=== PATIENT | male | born 1975 | race American Indian/Alaskan Native ===

== ENCOUNTER 2021-09-24 05:57 | Inpatient (IN) | payer BC ==
--- NOTE | 2021-09-24 07:20 | XRay Report ---
CHEST 2 VIEWS INDICATION / CLINICAL INFORMATION: sob. Chest pain. COMPARISON: None available. FINDINGS: SUPPORT DEVICES: None. HEART / MEDIASTINUM: No significant abnormality. LUNGS / PLEURA: There are nonspecific right basilar opacities with otherwise clear lungs. No signific ant pleural effusion. No pneumothorax. ADDITIONAL FINDINGS: No significant additional findings. IMPRESSION: Nonspecific right basilar opacities could represent atelectasis or pneumonia. Signer Name: Cristóbal Morillo MD Signed: 09/24/2021 7:16 AM Workstation Name: [id number]
[2021-09-24 09:02] LABS: Hematocrit 43.5 % (35.5-45.6); Hemoglobin 14.5 gm/dl (11.8-15.2); Mean Corpuscular HGB Conc 33 % (32-34); Mean Corpuscular Volume 90 fl (84-94); Platelet Count 415 K/mm3 (140-440); Red Blood Count 4.85 M/mm3 (3.65-5.03); Red Cell Distribution Width 12.8 % (13.2-15.2)
[2021-09-24 09:25] LABS: Alanine Aminotransferase 8 units/L (7-56); Albumin 3.8 g/dL (3.9-5); BUN/Creatinine Ratio 20; Blood Urea Nitrogen 14 mg/dL (9-20); Calcium 9.3 mg/dL (8.4-10.2); Chol/HDL Ratio 4.09 %; HDL Cholesterol 44 mg/dL (40-59); Hemolysis Index 2; LDL Cholesterol,Direct 121 mg/dL (50-130)
--- NOTE | 2021-09-24 10:58 | Emergency Department Report ---
ED General Adult HPI - General Chief complaint: Dyspnea/Respdistress Stated complaint: SOB PUI?: No Time Seen by Provider: 09/24/21 08:02 Source: patient Mode of arrival: Ambulatory Limitations: No Limitations - History of Present Illness Initial comments: 46 YO AA MALE COMES TO ER WITH SHARP CP AND SOB. HE REPORTS HX OF DVT IN THE PAST. DX [place] A LITTLE OVER 5 Y AGO. HE STATES THEY TOLD HIM IT WAS BECAUSE OF HIS "LIPIDS" AND HE WAS PLACED ON LIPITOR. HE ALSO STATES HE WAS ON PLAVIX (BUT NOT SURE IF THAT IS THE NAME). HE IS NO LONGER TAKING THESE. HE IS ALSO NOT TAKING AN ASA. HE IS ON NO HOME MEDS. PAIN HAS INC OVER THE LAST 2 DAYS. NO FEVER OR CHILLS NO COUGH OR BLOODY SPUTUM NO LEG PAIN OR SWELLING PT ADDS THAT IN [place] THE BLOOD CLOT WAS IN HIS LEG AND WENT TO HIS HEAD AND HE WAS PARALYZED FOR SOME TIME. Improves with: none Worsens with: none Associated Symptoms: denies other symptoms, chest pain, shortness of breath, weakness. denies: confusion, cough, diaphoresis, fever/chills, headaches, loss of appetite, malaise, nausea/vomiting, syncope Treatments Prior to Arrival: none - Related Data Allergies Allergy/AdvReac Type Severity Reaction Status Date / Time No Known Allergies Allergy Verified 09/24/21 06:27 ED Review of Systems ROS: Stated complaint: SOB Other details as noted in HPI Comment: All other systems reviewed and negative ED Past Medical Hx - Past Medical History Previous Medical History?: Yes Hx CVA: Yes Additional medical history: BLOOD CLOTS RELATED TO MY "LIPIDS" THEY HAD ME ON LIPITOR AND PLAVIX -- POOR IMFORMANT (DX WAS IN [place]); - Surgical History Past Surgical History?: No - Family History Family history: no significant - Social History Smoking Status: Never Smoker Substance Use Type: Alcohol ED Physical Exam - General Limitations: No Limitations General appearance: alert, in no apparent distress - Head Head exam: Present: atraumatic, normocephalic - Eye Eye exam: Present: normal appearance - ENT ENT exam: Present: mucous membranes moist - Neck Neck exam: Present: normal inspection - Respiratory Respiratory exam: Present: normal lung sounds bilaterally. Absent: respiratory distress - Cardiovascular Cardiovascular Exam: Present: regular rate, normal rhythm. Absent: systolic murmur, diastolic murmur, rubs, gallop - GI/Abdominal GI/Abdominal exam: Present: soft, normal bowel sounds - Rectal Rectal exam: Present: deferred - Extremities Exam Extremities exam: Present: normal inspection - Back Exam Back exam: Present: normal inspection - Neurological Exam Neurological exam: Present: alert, oriented X3 - Psychiatric Psychiatric exam: Present: normal affect, normal mood - Skin Skin exam: Present: warm, dry, intact, normal color. Absent: rash ED Course Vital Signs 09/24/21 06:15 Temperature 98.5 F Pulse Rate 101 H Respiratory 18 Rate Blood Pressure 147/90 [Left] O2 Sat by Pulse 100 Oximetry ED Medical Decision Making - Lab Data Result diagrams: 09/24/21 07:50 09/24/21 07:50 - EKG Data EKG shows normal: sinus rhythm Rate: tachycardia - EKG Data Interpretation: other (RA ENLARGEMENT WITH TALL PEAKED T WAVE; LVH AEB V LEAD VOLTAGE; LIKELY RV STRAIN WITH HIGH VOLTAGE ACROSS LIMB LEADS ) - Radiology Data Radiology results: report reviewed, image reviewed SEE REPORT - Medical Decision Making Vital Signs 09/24/21 06:15 Temperature 98.5 F Pulse Rate 101 H Respiratory 18 Rate Blood Pressure 147/90 [Left] O2 Sat by Pulse 100 Oximetry Labs 09/24/21 09/24/21 09/24/21 07:50 07:50 07:50 WBC 10.6 RBC 4.85 Hgb 14.5 Hct 43.5 MCV 90 MCH 30 MCHC 33 RDW 12.8 L Plt Count 415 PT INR APTT D-Dimer 1255.97 H Sodium 137 Potassium 4.1 Chloride 101.1 Carbon Dioxide 26 Anion Gap 14 BUN 14 Creatinine 0.7 L Estimated GFR > 60 BUN/Creatinine Ratio 20 Glucose 105 H Calcium 9.3 Total Bilirubin 0.50 AST 10 ALT 8 Alkaline Phosphatase 74 Troponin T < 0.010 Total Protein 8.6 H Albumin 3.8 L Albumin/Globulin Ratio 0.8 Triglycerides 86 Cholesterol 180 LDL Cholesterol Direct 121 HDL Cholesterol 44 Cholesterol/HDL Ratio 4.09 09/24/21 09/24/21 13:35 13:35 WBC RBC Hgb Hct MCV MCH MCHC RDW Plt Count PT 16.7 H INR 1.18 H APTT 36.0 D-Dimer Sodium Potassium Chloride Carbon Dioxide Anion Gap BUN Creatinine Estimated GFR BUN/Creatinine Ratio Glucose Calcium Total Bilirubin AST ALT Alkaline Phosphatase Troponin T < 0.010 Total Protein Albumin Albumin/Globulin Ratio Triglycerides Cholesterol LDL Cholesterol Direct HDL Cholesterol Cholesterol/HDL Ratio LABS NOTED DDIMER ELEVATED CT NOTED 12 LEAD NOTED STAFFED WITH DR LEON VASCULAR HODAN ( OF TIME OF NOTE THEY HAVE NOT CALLED ME BACK; HOWEVER, PT IS BEING ADMITTED- DEFER FOLLOW UP TO [facility]) US NOTED POS FOR DVT PT HAS BEEN UPDATED ON HIS ADMISSION. PENDING [facility] ORDERS AND BED ASSIGNMENT - Differential Diagnosis RO URI/ACS/PE Critical care attestation.: If time is entered above; I have spent that time in minutes in the direct care of this critically ill patient, excluding procedure time. ED Disposition Clinical Impression: Pulmonary emboli, DVT (deep venous thrombosis) Disposition: ADMITTED INPATIENT Is pt being admited?: Yes Does the pt Need Aspirin: No Condition: Stable Referrals: PRIMARY CARE, [Primary Care Provider] - 3-5 Days Time of Disposition: 17:11
--- NOTE | 2021-09-24 12:38 | Cat Scan Report ---
. CTA CHEST WITH CONTRAST INDICATION / CLINICAL INFORMATION: ro pe. Chest pain and shortness of breath TECHNIQUE: Axial CT images were obtained through the chest after injection of IV contrast. 3 plane VA P and/or 3D reconstructions were produced. All CT scans at this location are performed using CT dose reduction for ALARA by means of automated exposure control. COMPARISON: None available. FINDINGS: PULMONARY EMBOLUS: Positive. Most proximal level of embolus is Right Segmental Pulmonary Artery. Mode rate-sized occlusive PTE segmental right lower lobe THORACIC AORTA: No significant abnormality. HEART: No significant abnormality. CORONARY ARTERY CALCIFICATION: Absent -- None. MEDIASTINUM / RIGOBERTO: No significant abnormality. PLEURA: No pleural effusion. No pneumothorax. LUNGS: Pleural based wedge-shaped opacity measuring 1.6 cm right lower lobe likely representing infar ct/Rose hump. Small amount of groundglass/airspace disease posterior aspect right lower lobe laila cteristic for pulmonary hemorrhage. Moderate pulmonary emphysema. ADDITIONAL FINDINGS: None. UPPER ABDOMEN: No acute findings. SKELETAL STRUCTURES: No significant osseous abnormality. IMPRESSION: 1. Right lower lobe moderate sized segmental, embolus 2. Moderate emphysema. 3. Right lower lobe pulmonary hemorrhage and wedge-shaped probable pulmonary infarct/atelectasis CRITICAL RESULT: Right lower lobe PTE Time of Discovery (CUSTOMER LOYALTY REPRESENTATIVE/CDT): 11:30 AM 10/23/2021 CDT Time of Communication (CUSTOMER LOYALTY REPRESENTATIVE/CDT): 11:32 AM Licensed Practitioner Receiving Report: Nurse Jonas Read-Back Performed: Yes. Signer Name: Lester Meléndez MD Signed: 09/24/2021 12:34 PM Workstation Name: [id number]
--- NOTE | 2021-09-24 14:36 | Consultation ---
History of Present Illness - Reason for Consult Consult date: 09/24/21 Pulmonary embolism - History of Present Illness Patient presents with a 2-day history of mild shortness of breath. No sign ificant cough or phlegm. No hemoptysis. Patient does have a prior history of a DVT and what he thinks is his left leg approximately 5 years ago for which the patient stated that he was treated with aspirin. Past History Past Medical History: DVT Social history: Lives alone Medications and Allergies Allergies Allergy/AdvReac Type Severity Reaction Status Date / Time No Known Allergies Allergy Verified 09/24/21 06:27 Review of Systems All systems: negative Exam - Constitutional Vitals: Temp Pulse Resp BP Pulse Ox 98.5 F 101 H 18 147/90 100 09/24/21 06:15 09/24/21 06:15 09/24/21 06:15 09/24/21 06:15 09/24/21 06:15 General appearance: Present: no acute distress - EENT Eyes: Present: EOM intact ENT: hearing intact - Neck Neck: Present: supple, normal ROM - Respiratory Respiratory effort: normal - Extremities Extremities: No edema, Full ROM - Abdominal General gastrointestinal: Present: deferred Male genitourinary: Present: deferred - Rectal Rectal Exam: deferred - Psychiatric Psychiatric: appropriate mood/affect, cooperative Results - Labs CBC & Chem 7: 09/24/21 07:50 09/24/21 07:50 Labs: Abnormal lab results 09/24/21 09/24/21 09/24/21 Range/Units 07:50 07:50 07:50 RDW 12.8 L (13.2-15.2) % D-Dimer 1255.97 H (0-234) ng/mlDDU Creatinine 0.7 L (0.8-1.3) mg/dL Glucose 105 H (75-100) mg/dL Total Protein 8.6 H (6.3-8.2) g/dL Albumin 3.8 L (3.9-5) g/dL - Imaging and Cardiology CT scan - chest: report reviewed, image reviewed Assessment and Plan Patient presents with a 2-day history of shortness of breath. CTA of the chest was performed. This demonstrates a segmental right lower lobe pulmonary embolism. No history of lower extremity swelling however, given the patient's history of DVT 5 years prior we will obtain a venous duplex. I the patient's CTA also demonstrates wedge-shaped opacification consistent with pulmonary infarct. The patient also has groundglass opacities in the posterior dependent portion of his right lower lobe. Per radiology report, this is consistent with pulmonary hemorrhage. Patient does not have any history of hemoptysis. We will obtain pulmonology consult. At this time, we will hold off on anticoagulation until cleared by pulmonology. We will obtain a COVID-19 test as well.
[2021-09-24 14:44] LABS: INR 1.18 (0.87-1.13)
--- NOTE | 2021-09-24 16:27 | Vascular Lab Report ---
DUPLEX DOPPLER LOWER EXTREMITY VEINS, BILATERAL INDICATION / CLINICAL INFORMATION: Acute PTE. Chest pain and shortness of breath. TECHNIQUE: Duplex doppler imaging was performed through the veins of both lower extremities using mj ous compression and other maneuvers. COMPARISON: CTA chest earlier today. FINDINGS: RIGHT COMMON FEMORAL VEIN: Negative. RIGHT FEMORAL VEIN: Negative. RIGHT POPLITEAL VEIN: Negative. RIGHT CALF VEINS: Negative. LEFT COMMON FEMORAL VEIN: Negative. LEFT FEMORAL VEIN: Negative. LEFT POPLITEAL VEIN: Acute occlusive DVT. LEFT CALF VEINS: Acute occlusive DVT. ADDITIONAL FINDINGS: None. IMPRESSION: Acute occlusive DVT involving the left popliteal and calf veins. The results were communicated to the patient's nurse, Jose, by the lead neurodiagnostic technologist at 1600 hours. Signer Name: Lucien Mcdaniel MD Signed: 09/24/2021 4:23 PM Workstation Name: [id number]
[2021-09-24] MEDS ORDERED: ALBUTEROL 2.5 MG/3 ML NEBU IH PRN (17:32)
[2021-09-24] MEDS ORDERED: HYDROmorphone 0.5 MG/0.5 ML INJ IV PRN (17:32)
[2021-09-24] MEDS ORDERED: ACETAMINOPHEN 325 MG TAB PO PRN (17:32)
[2021-09-24] MEDS ORDERED: oxyCODONE /ACETAMINOPHEN 5-325MG TAB PO PRN (17:32)
--- NOTE | 2021-09-24 17:36 | History and Physical Report ---
History of Present Illness Chief complaint: It hurts when I take a deep breath and it is hard to breathe History of present illness: 46 YO Male with HLD, Medication Noncompliance, CVA, ETOH Dependence, History of DVT not currently taking therapeutic anticoagulation presents to ED for evaluation. Patient reports "it is hard for me to breathe and my chest hurts when I breathe". Patient states that he has experienced shortness of breath as well as chest pain with deep breathing over the past 2 days. Patient transp orted to [facility] via private vehicle for further care and evaluation of the aforementioned symptoms. The patient was seen and evaluated in the emergency department. All lab and imaging studies reviewed. Patient found to have a pulse oximetry of 87% on room air with exertion which is consistent with acute hypoxemic respiratory failure. CT scan of the chest revealed pulmonary embolus with concomitant pulmonary hemorrhage. Patient admitted to telemetry due to increased risk of worsening symptoms and for medical stabilization. Vascular surgery team consulted in ED. Pulmonary team consulted in ED. Patient denies fever, chills, chest pain, palpitation, productive cough, skin rash and recent contact, hemoptysis, known exposure to COVID-19. No prior admission for review. No medication listed at time of admission for reconciliation. Advanced care planning conducted in ED. Past History Past Medical History: DVT, hypertension, stroke, other (See HPI) Past Surgical History: No surgical history, Other (See HPI) Social history: single, Lives alone, alcohol abuse. denies: smoking Family history: hypertension Medications and Allergies Allergies Allergy/AdvReac Type Severity Reaction Status Date / Time No Known Allergies Allergy Verified 09/24/21 06:27 Review of Systems Constitutional: no weight loss, no weight gain, no fever, no sweats Ears, nose, mouth and throat: no ear pain, no tinnitis, no nose pain, no nasal congestion, no nasal discharge Cardiovascular: chest pain, no orthopnea, no palpitations, no edema Respiratory: shortness of breath, pleurisy, no cough, no excessive sputum Gastrointestinal: no abdominal pain, no nausea, no vomiting, no diarrhea Genitourinary Male: no hematuria, no flank pain, no discharge, no urinary frequency, no urinary hesitancy Rectal: no pain, no incontinence, no bleeding Musculoskeletal: no neck pain, no shooting arm pain, no low back pain, no shooting leg pain, no leg numbness/tingling, no redness of joints Integumentary: no rash, no pruritis, no sores, no wounds, no jaundice, no blisters, no darkening of skin, no depigmentation, no color changes Neurological: no paralysis, no parathesias, no tingling, no seizures Psychiatric: no anxiety, no sleep disturbances, no insomnia, no hypersomnia, no change in appetite Endocrine: no cold intolerance, no polyuria, no excessive sweating, no flushing, no weight change Hematologic/Lymphatic: no easy bruising, no easy bleeding, no lymphadenopathy, no lymphedema Allergic/Immunologic: no allergic rhinitis, no anaphylaxis, no angioedema Exam - Constitutional Vitals: Temp Pulse Resp BP Pulse Ox 98.5 F 101 H 18 147/90 100 09/24/21 06:15 09/24/21 06:15 09/24/21 06:15 09/24/21 06:15 09/24/21 06:15 General appearance: Present: mild distress - EENT Eyes: Present: PERRL ENT: hearing intact, clear oral mucosa - Neck Neck: Present: supple, normal ROM - Respiratory Respiratory effort: labored, accessory muscle use Respiratory: bilateral: diminished, rhonchi - Cardiovascular Rhythm: other (Tachycardia) Heart Sounds: Present: S1 & S2. Absent: rub, click - Extremities Extremities: pulses symmetrical, No edema Peripheral Pulses: within normal limits - Abdominal General gastrointestinal: Present: soft, non-tender, non-distended, normal bowel sounds Male genitourinary: Present: normal - Integumentary Integumentary: Present: clear, warm, dry - Musculoskeletal Musculoskeletal: gait normal, strength equal bilaterally - Psychiatric Psychiatric: appropriate mood/affect, intact judgment & insight - Neurologic Neurologic: CNII-XII intact, moves all extremities HEART Score - HEART Score Troponin: Troponin T < 0.010 ng/mL (0.00-0.029) 09/24/21 13:35 Results - Labs CBC & Chem 7: 09/24/21 07:50 09/24/21 07:50 Labs: Abnormal lab results 09/24/21 09/24/21 09/24/21 Range/Units 07:50 07:50 07:50 RDW 12.8 L (13.2-15.2) % PT (12.2-14.9) Sec. INR (0.87-1.13) D-Dimer 1255.97 H (0-234) ng/mlDDU Creatinine 0.7 L (0.8-1.3) mg/dL Glucose 105 H (75-100) mg/dL Total Protein 8.6 H (6.3-8.2) g/dL Albumin 3.8 L (3.9-5) g/dL 09/24/21 Range/Units 13:35 RDW (13.2-15.2) % PT 16.7 H (12.2-14.9) Sec. INR 1.18 H (0.87-1.13) D-Dimer (0-234) ng/mlDDU Creatinine (0.8-1.3) mg/dL Glucose (75-100) mg/dL Total Protein (6.3-8.2) g/dL Albumin (3.9-5) g/dL Assessment and Plan - Patient Problems (1) Acute hypoxemic respiratory failure Current Visit: Yes Status: Acute Plan to address problem: Chest x-ray, supplemental oxygen, CT chest, noninvasive positive pressure ventilation as clinically indicated, supportive care, pulmonary team consulted, (2) Pulmonary embolism Current Visit: Yes Status: Acute Plan to address problem: D-dimer, CT scan chest, vascular surgery consulted. Hold anticoagulation for now due to pulmonary hemorrhage. (3) Pulmonary hemorrhage Current Visit: Yes Status: Acute Plan to address problem: Supportive care. Supplemental oxygen, pulse oximetry, nebulizer therapy, hold therapeutic anticoagulation at this time. (4) DVT prophylaxis Current Visit: Yes Status: Acute Plan to address problem: SCD to bilateral lower extremities while in bed (5) Alcohol dependence Current Visit: Yes Status: Acute Plan to address problem: CIWA protocol, thiamine, folic acid, multivitamin daily (6) Advance care planning Current Visit: Yes Status: Acute Plan to address problem: Disease education data, care plan discussed, diagnosis discussed, prognosis discussed, patient is full code. Patient knowledges understanding agree with care plan, +30 minutes. (7) Preventative health care Current Visit: Yes Status: Acute Plan to address problem: Patient counseled regarding risk factor reduction, medication compliance, outpatient follow-up with primary care physician for all age and risk factor appropriate screening test. +30 minutes.
[2021-09-24] MEDS ORDERED: LORazepam 2 MG/ML VIAL IV PRN ×3 (17:56)
[2021-09-24] MEDS ORDERED: THIAMINE 100 MG TAB PO ONE (17:56)
[2021-09-24] MEDS ORDERED: MULTIVITAMINS ,THERAPEUTIC TAB PO ONE (17:56)
[2021-09-25 06:42] LABS: Basophils % (Auto) 0.6 % (0.0-1.8); Eosinophils # (Auto) 0.3 K/mm3 (0.0-0.4); Eosinophils % (Auto) 3.1 % (0.0-4.3); Hematocrit 38.4 % (35.5-45.6); Hemoglobin 12.9 gm/dl (11.8-15.2); Lymphocytes # (Auto) 1.8 K/mm3 (1.2-5.4); Lymphocytes % (Auto) 20.9 % (13.4-35.0); Mean Corpuscular HGB Conc 34 % (32-34); Mean Corpuscular Volume 89 fl (84-94); Monocytes # (Auto) 0.9 K/mm3 (0.0-0.8); Monocytes % (Auto) 10.3 % (0.0-7.3); Platelet Count 375 K/mm3 (140-440); Red Blood Count 4.31 M/mm3 (3.65-5.03); Red Cell Distribution Width 12.8 % (13.2-15.2)
[2021-09-25 06:59] LABS: Blood Urea Nitrogen 16 mg/dL (9-20); Calcium 8.7 mg/dL (8.4-10.2); Hemolysis Index 1
[2021-09-25 07:01] LABS: BUN/Creatinine Ratio 27
[2021-09-25] MEDS: FOLIC ACID 1 MG TAB PO SCH (09:14)
--- NOTE | 2021-09-25 12:01 | Consultation ---
History of Present Illness Consult date: 09/25/21 Requesting physician: MOSHE SAENZ Reason for consult: other (pulmonary hemorrhage) History of present illness: 46 y/o male with several day history of shortness of breath. Has had VTE in the past (7 years ago) admitted and found to have right lower lobe pulmonary emboli. Ultrasound reveals lower ext dvt as well. Per patient he drove to [place] about 2 weeks ago and only stopped once for gas. This am he is on room air. H/H is stable. No evidence of bleeding and no hemoptysis, despite having known PE. Patient was not started on anticoagulation based on concern for hemorrhage. Past History Past Medical History: DVT, hypertension, stroke, other (VTE in the past (7 years ago)) Past Surgical History: No surgical history, Other (See HPI) Social history: single, Lives alone, alcohol abuse. denies: smoking Family history: hypertension Medications and Allergies Allergies Allergy/AdvReac Type Severity Reaction Status Date / Time No Known Allergies Allergy Verified 09/24/21 06:27 Home Medications Medication Instructions Recorded Confirmed Last Taken Type Aspirin [[place]] 81 mg PO DAILY 09/25/21 09/25/21 Unknown History Active Meds: Active Medications Acetaminophen (Acetaminophen 325 Mg Tab) 650 mg PO Q6H PRN PRN Reason: Pain MILD(1-3)/Fever >100.5/MANZO Albuterol (Albuterol 2.5 Mg/3 Ml Nebu) 2.5 mg IH Q3HRT PRN PRN Reason: Shortness Of Breath Folic Acid (Folic Acid 1 Mg Tab) 1 mg PO QDAY ASUNCION Last Admin: 09/25/21 09:14 Dose: 1 mg Hydromorphone HCl (Hydromorphone 0.5 Mg/0.5 Ml Inj) 0.5 mg IV Q23H PRN PRN Reason: Pain , Severe (7-10) Lorazepam (Lorazepam 2 Mg/Ml Vial) 2 mg IV Q1HR PRN PRN Reason: CIWA-Ar 8-15 Lorazepam (Lorazepam 2 Mg/Ml Vial) 4 mg IV Q15MIN PRN PRN Reason: CIWA-Ar >25 Lorazepam (Lorazepam 2 Mg/Ml Vial) 4 mg IV Q1HR PRN PRN Reason: CIWA-Ar 16-25 Oxycodone/Acetaminophen (Oxycodone /Acetaminophen 5-325mg Tab) 1 tab PO Q16H PRN PRN Reason: Pain, Moderate (4-6) Sodium Chloride (Sodium Chloride 0.9% 10 Ml Flush Syringe) 10 ml IV BID ASUNCION Last Admin: 09/25/21 09:14 Dose: 10 ml Sodium Chloride (Sodium Chloride 0.9% 10 Ml Flush Syringe) 10 ml IV PRN PRN PRN Reason: LINE FLUSH Review of Systems All systems: negative Physical Examination Vital signs: Vital Signs Temp Pulse Resp BP Pulse Ox 98.5 F 101 H 18 147/90 100 09/24/21 06:15 09/24/21 06:15 09/24/21 06:15 09/24/21 06:15 09/24/21 06:15 General appearance: no acute distress, alert Eyes: non-icteric ENT: oropharynx moist Neck: supple Effort: normal Ascultation: Bilateral: clear Percussion: Bilateral: not dull Tactile fremitus: Bilateral: normal Cardiovascular: regular rate and rhythm Gastrointestinal: normoactive bowel sounds, soft Integumentary: normal Extremities: no cyanosis, no edema Musculoskeletal: no deformities normal mental status, non-focal exam Results - Laboratory Findings CBC and BMP: 09/25/21 06:17 09/25/21 06:17 PT/INR, D-dimer PT 16.7 Sec. (12.2-14.9) H 09/24/21 13:35 INR 1.18 (0.87-1.13) H 09/24/21 13:35 D-Dimer 1255.97 ng/mlDDU (0-234) H 09/24/21 07:50 Abnormal lab findings: Abnormal Labs 09/24/21 09/24/21 09/24/21 07:50 07:50 07:50 RDW 12.8 L [place] % (Auto) [place] # (Auto) PT INR D-Dimer 1255.97 H Creatinine 0.7 L Glucose 105 H Total Protein 8.6 H Albumin 3.8 L 09/24/21 09/25/21 09/25/21 13:35 06:17 06:17 RDW 12.8 L [place] % (Auto) 10.3 H [place] # (Auto) 0.9 H PT 16.7 H INR 1.18 H D-Dimer Creatinine 0.6 L Glucose 141 H Total Protein Albumin - Diagnostic Findings Chest x-ray: image reviewed CT scan - chest: image reviewed Assessment and Plan 46 y/o male with VTE in the setting of recent long trip 1. I am not clinically concerned about pulmonary hemorrhage. I feel that the benefits of anticoagulation outweigh the risk. Suggest starting heparin and monitoring patient at least 24-36 hours on this. If he happens to have hemoptys is, even that does not indicate pulmonary hemorrhage as this is common with PE. However if massive hemoptysis occurs (600cc or more in a 24 hour period) this would warrant bronchoscopy to isolate bleed and where it is coming from. I have spoken with [facility]. Will continue to follow.
[2021-09-25] MEDS ORDERED: HEPARIN 10,000 UNITS/10 ML VIAL IV NR (12:05)
--- NOTE | 2021-09-25 12:05 | Progress Note ---
History Interval history: 46-year-old male with history of VTE in the past (7 years ago) who presented through the emergency department with several day history of shortness of breath. The patient was admitted with diagnosis of right lower lobe pulmonary emboli.\ Acute pulmonary embolus Right lower extremity DVT Acute hypoxic respiratory failure Alcohol dependence 09/25/2021. I discussed the case with pulmonary who is in agreement the patient will be started on IV heparin and then transition to oral anticoagulation. Follow-up echocardiogram to rule out right heart strain Hospitalist Physical - Constitutional Vitals: Temp Pulse Resp BP Pulse Ox 98.1 F 84 18 124/84 97 09/25/21 08:44 09/25/21 11:00 09/25/21 11:00 09/25/21 08:44 09/25/21 11:00 General appearance: Present: mild distress HEART Score - HEART Score Troponin: Troponin T < 0.010 ng/mL (0.00-0.029) 09/24/21 13:35 Results - Labs CBC & Chem 7: 09/25/21 06:17 09/25/21 06:17 Labs: Laboratory Last Values WBC 8.5 K/mm3 (4.5-11.0) 09/25/21 06:17 RBC 4.31 M/mm3 (3.65-5.03) 09/25/21 06:17 Hgb 12.9 gm/dl (11.8-15.2) 09/25/21 06:17 Hct 38.4 % (35.5-45.6) 09/25/21 06:17 MCV 89 fl (84-94) 09/25/21 06:17 MCH 30 pg (28-32) 09/25/21 06:17 MCHC 34 % (32-34) 09/25/21 06:17 RDW 12.8 % (13.2-15.2) L 09/25/21 06:17 Plt Count 375 K/mm3 (140-440) 09/25/21 06:17 Lymph % (Auto) 20.9 % (13.4-35.0) 09/25/21 06:17 [place] % (Auto) 10.3 % (0.0-7.3) H 09/25/21 06:17 Eos % (Auto) 3.1 % (0.0-4.3) 09/25/21 06:17 Baso % (Auto) 0.6 % (0.0-1.8) 09/25/21 06:17 Lymph # (Auto) 1.8 K/mm3 (1.2-5.4) 09/25/21 06:17 [place] # (Auto) 0.9 K/mm3 (0.0-0.8) H 09/25/21 06:17 Eos # (Auto) 0.3 K/mm3 (0.0-0.4) 09/25/21 06:17 Baso # (Auto) 0.0 K/mm3 (0.0-0.1) 09/25/21 06:17 Seg Neutrophils % 65.1 % (40.0-70.0) 09/25/21 06:17 Seg Neutrophils # 5.5 K/mm3 (1.8-7.7) 09/25/21 06:17 PT 16.7 Sec. (12.2-14.9) H 09/24/21 13:35 INR 1.18 (0.87-1.13) H 09/24/21 13:35 APTT 36.0 Sec. (24.2-36.6) 09/24/21 13:35 D-Dimer 1255.97 ng/mlDDU (0-234) H 09/24/21 07:50 Sodium 137 mmol/L (137-145) 09/25/21 06:17 Potassium 3.9 mmol/L (3.6-5.0) 09/25/21 06:17 Chloride 102.7 mmol/L (98-107) 09/25/21 06:17 Carbon Dioxide 25 mmol/L (22-30) 09/25/21 06:17 Anion Gap 13 mmol/L 09/25/21 06:17 BUN 16 mg/dL (9-20) 09/25/21 06:17 Creatinine 0.6 mg/dL (0.8-1.3) L 09/25/21 06:17 Estimated GFR > 60 ml/min 09/25/21 06:17 BUN/Creatinine Ratio 27 % 09/25/21 06:17 Glucose 141 mg/dL (75-100) H 09/25/21 06:17 Calcium 8.7 mg/dL (8.4-10.2) 09/25/21 06:17 Total Bilirubin 0.50 mg/dL (0.1-1.2) 09/24/21 07:50 AST 10 units/L (5-40) 09/24/21 07:50 ALT 8 units/L (7-56) 09/24/21 07:50 Alkaline Phosphatase 74 units/L (35-129) 09/24/21 07:50 Troponin T < 0.010 ng/mL (0.00-0.029) 09/24/21 13:35 NT-Pro-B Natriuret Pep 16.31 pg/mL (0-450) 09/24/21 16:00 Total Protein 8.6 g/dL (6.3-8.2) H 09/24/21 07:50 Albumin 3.8 g/dL (3.9-5) L 09/24/21 07:50 Albumin/Globulin Ratio 0.8 % 09/24/21 07:50 Triglycerides 86 mg/dL (2-149) 09/24/21 07:50 Cholesterol 180 mg/dL (50-199) 09/24/21 07:50 LDL Cholesterol Direct 121 mg/dL (50-130) 09/24/21 07:50 HDL Cholesterol 44 mg/dL (40-59) 09/24/21 07:50 Cholesterol/HDL Ratio 4.09 % 09/24/21 07:50 SARS-CoV-2 (PCR) Negative (Negative) 09/25/21 10:20 [place]/IV: Voiding Method Urinal Active Medications - Current Medications Current Medications: Generic Name Dose Route Start Last Admin Trade Name Freq PRN Reason Stop Dose Admin Acetaminophen 650 mg 09/24/21 17:32 Acetaminophen 325 Mg Tab PO Q6H PRN Pain MILD(1-3)/Fever >100.5/MANZO Albuterol 2.5 mg 09/24/21 17:32 Albuterol 2.5 Mg/3 Ml Nebu IH Q3HRT PRN Shortness Of Breath Folic Acid 1 mg 09/25/21 10:00 09/25/21 09:14 Folic Acid 1 Mg Tab PO 1 mg QDAY ASUNCION Administration Hydromorphone HCl 0.5 mg 09/24/21 17:32 Hydromorphone 0.5 Mg/0.5 Ml Inj IV Q23H PRN Pain , Severe (7-10) Lorazepam 2 mg 09/24/21 17:56 Lorazepam 2 Mg/Ml Vial IV Q1HR PRN CIWA-Ar 8-15 Lorazepam 4 mg 09/24/21 17:56 Lorazepam 2 Mg/Ml Vial IV Q15MIN PRN CIWA-Ar >25 Lorazepam 4 mg 09/24/21 17:56 Lorazepam 2 Mg/Ml Vial IV Q1HR PRN CIWA-Ar 16-25 Oxycodone/Acetaminophen 1 tab 09/24/21 17:32 Oxycodone /Acetaminophen 5-325mg Tab PO Q16H PRN Pain, Moderate (4-6) Sodium Chloride 10 ml 09/24/21 22:00 09/25/21 09:14 Sodium Chloride 0.9% 10 Ml Flush Syringe IV 10 ml BID ASUNCION Administration Sodium Chloride 10 ml 09/24/21 17:32 Sodium Chloride 0.9% 10 Ml Flush Syringe IV PRN PRN LINE FLUSH
[2021-09-25] MEDS ORDERED: HEPARIN 10,000 UNITS/10 ML VIAL IV PRN (13:00)
[2021-09-25] MEDS ORDERED: HEPARIN/ 0.45% NACL DRIP 25,000 UNIT/500 ML BAG IV SCH (13:00)
[2021-09-25 13:21] LABS: Hemoglobin 13.1 gm/dl (11.8-15.2)
[2021-09-25 13:37] LABS: INR 0.99 (0.87-1.13)
[2021-09-25 13:38] LABS: Partial Thromboplastin Time 30.3 Sec. (24.2-36.6)
[2021-09-26] MEDS: FOLIC ACID 1 MG TAB PO SCH (09:25)
--- NOTE | 2021-09-26 10:37 | Progress Note ---
History Interval history: 46-year-old male with history of VTE in the past (7 years ago) who presented through the emergency department with several day history of shortness of breath. The patient was admitted with diagnosis of right lower lobe pulmonary emboli.\ Acute pulmonary embolus Right lower extremity DVT Acute hypoxic respiratory failure Alcohol dependence 09/25/2021. I discussed the case with pulmonary who is in agreement the patient will be started on IV heparin and then transition to oral anticoagulation. Follow-up echocardiogram to rule out right heart strain 09/26/2021. Echocardiogram does not show right heart strain and only mild diastolic dysfunction. We will transition from IV heparin to Eliquis. Anticipate discharge in a.m. Hospitalist Physical - Constitutional Vitals: Temp Pulse Resp BP Pulse Ox 97.6 F 69 18 113/81 98 09/26/21 07:21 09/26/21 07:21 09/26/21 07:21 09/26/21 07:21 09/26/21 07:21 General appearance: Present: mild distress HEART Score - HEART Score Troponin: Troponin T < 0.010 ng/mL (0.00-0.029) 09/24/21 13:35 Results - Labs CBC & Chem 7: 09/25/21 12:31 09/25/21 06:17 Labs: Laboratory Last Values WBC 8.5 K/mm3 (4.5-11.0) 09/25/21 06:17 RBC 4.31 M/mm3 (3.65-5.03) 09/25/21 06:17 Hgb 13.1 gm/dl (11.8-15.2) 09/25/21 12:31 Hct 39.0 % (35.5-45.6) 09/25/21 12:31 MCV 89 fl (84-94) 09/25/21 06:17 MCH 30 pg (28-32) 09/25/21 06:17 MCHC 34 % (32-34) 09/25/21 06:17 RDW 12.8 % (13.2-15.2) L 09/25/21 06:17 Plt Count 389 K/mm3 (140-440) 09/25/21 12:31 Lymph % (Auto) 20.9 % (13.4-35.0) 09/25/21 06:17 [place] % (Auto) 10.3 % (0.0-7.3) H 09/25/21 06:17 Eos % (Auto) 3.1 % (0.0-4.3) 09/25/21 06:17 Baso % (Auto) 0.6 % (0.0-1.8) 09/25/21 06:17 Lymph # (Auto) 1.8 K/mm3 (1.2-5.4) 09/25/21 06:17 [place] # (Auto) 0.9 K/mm3 (0.0-0.8) H 09/25/21 06:17 Eos # (Auto) 0.3 K/mm3 (0.0-0.4) 09/25/21 06:17 Baso # (Auto) 0.0 K/mm3 (0.0-0.1) 09/25/21 06:17 Seg Neutrophils % 65.1 % (40.0-70.0) 09/25/21 06:17 Seg Neutrophils # 5.5 K/mm3 (1.8-7.7) 09/25/21 06:17 PT 14.5 Sec. (12.2-14.9) 09/25/21 12:31 INR 0.99 (0.87-1.13) 09/25/21 12:31 APTT 30.3 Sec. (24.2-36.6) 09/25/21 12:31 D-Dimer 1255.97 ng/mlDDU (0-234) H 09/24/21 07:50 Heparin Anti-Xa Level 0.32 U.I./ml (0.3-0.7) 09/26/21 05:36 Sodium 137 mmol/L (137-145) 09/25/21 06:17 Potassium 3.9 mmol/L (3.6-5.0) 09/25/21 06:17 Chloride 102.7 mmol/L (98-107) 09/25/21 06:17 Carbon Dioxide 25 mmol/L (22-30) 09/25/21 06:17 Anion Gap 13 mmol/L 09/25/21 06:17 BUN 16 mg/dL (9-20) 09/25/21 06:17 Creatinine 0.6 mg/dL (0.8-1.3) L 09/25/21 06:17 Estimated GFR > 60 ml/min 09/25/21 06:17 BUN/Creatinine Ratio 27 % 09/25/21 06:17 Glucose 141 mg/dL (75-100) H 09/25/21 06:17 Calcium 8.7 mg/dL (8.4-10.2) 09/25/21 06:17 Total Bilirubin 0.50 mg/dL (0.1-1.2) 09/24/21 07:50 AST 10 units/L (5-40) 09/24/21 07:50 ALT 8 units/L (7-56) 09/24/21 07:50 Alkaline Phosphatase 74 units/L (35-129) 09/24/21 07:50 Troponin T < 0.010 ng/mL (0.00-0.029) 09/24/21 13:35 NT-Pro-B Natriuret Pep 16.31 pg/mL (0-450) 09/24/21 16:00 Total Protein 8.6 g/dL (6.3-8.2) H 09/24/21 07:50 Albumin 3.8 g/dL (3.9-5) L 09/24/21 07:50 Albumin/Globulin Ratio 0.8 % 09/24/21 07:50 Triglycerides 86 mg/dL (2-149) 09/24/21 07:50 Cholesterol 180 mg/dL (50-199) 09/24/21 07:50 LDL Cholesterol Direct 121 mg/dL (50-130) 09/24/21 07:50 HDL Cholesterol 44 mg/dL (40-59) 09/24/21 07:50 Cholesterol/HDL Ratio 4.09 % 09/24/21 07:50 SARS-CoV-2 (PCR) Negative (Negative) 09/25/21 10:20 [place]/IV: Voiding Method Toilet Active Medications - Current Medications Current Medications: Generic Name Dose Route Start Last Admin Trade Name Freq PRN Reason Stop Dose Admin Acetaminophen 650 mg 09/24/21 17:32 Acetaminophen 325 Mg Tab PO Q6H PRN Pain MILD(1-3)/Fever >100.5/MANZO Albuterol 2.5 mg 09/24/21 17:32 Albuterol 2.5 Mg/3 Ml Nebu IH Q3HRT PRN Shortness Of Breath Folic Acid 1 mg 09/25/21 10:00 09/26/21 09:25 Folic Acid 1 Mg Tab PO 1 mg QDAY ASUNCION Administration Heparin Sodium (Porcine) 2,800 unit 09/25/21 13:00 09/25/21 22:29 Heparin 10,000 Units/10 Ml Vial 40 unit/kg (2800 unit) 2,800 unit IV Administration Q6H PRN Anti-Xa Assay < 0.1 units/ml Hydromorphone HCl 0.5 mg 09/24/21 17:32 Hydromorphone 0.5 Mg/0.5 Ml Inj IV Q23H PRN Pain , Severe (7-10) Heparin Sodium/Sodium Chloride 25,000 unit in 500 mls @ 21 mls/hr 09/25/21 13:00 09/26/21 06:37 Heparin/ 0.45% Nacl-25,000 Unit/500 Ml IV 1,250 units/hr TITR ASUNCION 25 mls/hr Titration Protocol 1,050 UNITS/HR Lorazepam 2 mg 09/24/21 17:56 Lorazepam 2 Mg/Ml Vial IV Q1HR PRN CIWA-Ar 8-15 Lorazepam 4 mg 09/24/21 17:56 Lorazepam 2 Mg/Ml Vial IV Q15MIN PRN CIWA-Ar >25 Lorazepam 4 mg 09/24/21 17:56 Lorazepam 2 Mg/Ml Vial IV Q1HR PRN CIWA-Ar 16-25 Oxycodone/Acetaminophen 1 tab 09/24/21 17:32 Oxycodone /Acetaminophen 5-325mg Tab PO Q16H PRN Pain, Moderate (4-6) Sodium Chloride 10 ml 09/24/21 22:00 09/26/21 09:25 Sodium Chloride 0.9% 10 Ml Flush Syringe IV 10 ml BID ASUNCION Administration Sodium Chloride 10 ml 09/24/21 17:32 Sodium Chloride 0.9% 10 Ml Flush Syringe IV PRN PRN LINE FLUSH Nutrition/Malnutrition Assess - Dietary Evaluation Nutrition/Malnutrition Findings: Nutrition Notes Start: 09/25/21 18:01 Freq: Status: Active Protocol: Document 09/25/21 18:01 MARY JANE (Rec: 09/25/21 18:16 MARY JANE [id number]) Nutrition Notes Need for Assessment generated from: [email or web address] Initial or Follow up Assessment Current Diagnosis Hypertension,Respiratory Failure,Stroke,Hyperlipidemia Other Pertinent Diagnosis EtOH Dependence, R-LE DVT, Pulmonary Emboli/Hemorrage. Current Diet Cardiac Diet (since L 09/25). Labs/Tests 09/25: Crea 0.6, Glu 141. Pertinent Medications 09/25: Folic acid, others nutritionally unremarkable. 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 Weight Status Appropriate Subjective/Other Information RD consult for risk of malnutrition assessment. No reports available on Pt's PO intake of meals at the time , will assess at F/U. Pt is on Room Air, O2 saturation @ 97%, according to Physical Assessment History notes. Pt shows no signs of concern for risk of malnutrition at the time, according to Physical Assessment History notes. Percent of energy/protein needs met: Prescribed Cardiac Diet provides for energy/protein needs (2,230 Kcal/85 g) during LOS. Burn Absent Trauma Absent GI Symptoms None Food Allergy No Skin Integrity/Comment Assessment WNL. 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 No Is Patient Ambulatory and/or Out of Bed Yes REE-([facility]-ambulatory/OOB) [ 2127.944 [id number]] Kcal/Kg value to use for calculation 33 Approximate Energy Requirements Using 2320 kcal/Kg Calculation Used for Recommendations Kcal/kg Additional Notes Protein: 0.8-1 g/Kg ABW; 56-70 g/day. Fluids: 1 ml/Kcal, or as per MD. Nutrition Intervention Change Diet Order: Continue Cardiac Diet as tolerated. Follow-Up By: 10/02/21 Additional Comments Continue monitoring food tolerance, %PO intake of meals , and BM.
[2021-09-26 13:14] LABS: Hematocrit 38.8 % (35.5-45.6); Hemoglobin 12.9 gm/dl (11.8-15.2); Mean Corpuscular HGB Conc 33 % (32-34); Mean Corpuscular Volume 89 fl (84-94); Platelet Count 413 K/mm3 (140-440); Red Blood Count 4.35 M/mm3 (3.65-5.03); Red Cell Distribution Width 12.7 % (13.2-15.2)
[2021-09-26 13:25] LABS: Partial Thromboplastin Time 56.3 Sec. (24.2-36.6)
--- NOTE | 2021-09-26 18:14 | Progress Note ---
Assessment and Plan 46 y/o male with VTE in the setting of recent long trip 09/26/21: Continue heparin. Will follow. 1. I am not clinically concerned about pulmonary hemorrhage. I feel that the benefits of anticoagulation outweigh the risk. Suggest starting heparin and monitoring patient at least 24-36 hours on this. If he happens to have hemoptysis, even that does not indicate pulmonary hemorrhage as this is common with PE. However if massive hemoptysis occurs (600cc or more in a 24 hour period) this would warrant bronchoscopy to isolate bleed and where it is coming from. I have spoken with IMS. Will continue to follow. Subjective Date of service: 09/26/21 Interval history: No acute events. No evidence of pulmonary hemorrhage after starting heparin. Objective Vital Signs - 12hr 09/26/21 09/26/21 09/26/21 07:21 11:00 12:03 Temperature 97.6 F 98.1 F Pulse Rate 69 71 Respiratory 18 16 Rate Blood Pressure 113/81 132/87 O2 Sat by Pulse 98 98 98 Oximetry 09/26/21 16:14 Temperature 98.2 F Pulse Rate 69 Respiratory 16 Rate Blood Pressure 134/86 O2 Sat by Pulse 99 Oximetry Constitutional: no acute distress, alert Eyes: non-icteric ENT: oropharynx moist Neck: supple Effort: normal Ascultation: Bilateral: clear Percussion: Bilateral: not dull Tactile fremitus: Bilateral: normal Cardiovascular: regular rate and rhythm Gastrointestinal: normoactive bowel sounds, soft Integumentary: normal Extremities: no cyanosis, no edema Neurologic: normal mental status, non-focal exam CBC and BMP: 09/26/21 12:10 09/26/21 12:10 ABG, PT/INR, D-dimer: PT/INR, D-dimer PT 14.6 Sec. (12.2-14.9) 09/26/21 12:10 INR 1.00 (0.87-1.13) 09/26/21 12:10 D-Dimer 1255.97 ng/mlDDU (0-234) H 09/24/21 07:50 Abnormal lab findings: Abnormal Labs 09/24/21 09/24/21 09/24/21 07:50 07:50 07:50 RDW 12.8 L [place] % (Auto) [place] # (Auto) PT INR APTT D-Dimer 1255.97 H Heparin Anti-Xa Level Creatinine 0.7 L Glucose 105 H Total Protein 8.6 H Albumin 3.8 L 09/24/21 09/25/21 09/25/21 13:35 06:17 06:17 RDW 12.8 L [place] % (Auto) 10.3 H [place] # (Auto) 0.9 H PT 16.7 H INR 1.18 H APTT D-Dimer Heparin Anti-Xa Level Creatinine 0.6 L Glucose 141 H Total Protein Albumin 09/25/21 09/26/21 09/26/21 20:29 12:10 12:10 RDW 12.7 L [place] % (Auto) [place] # (Auto) PT INR APTT 56.3 H D-Dimer Heparin Anti-Xa Level < 0.10 L Creatinine Glucose Total Protein Albumin 09/26/21 12:10 RDW [place] % (Auto) [place] # (Auto) PT INR APTT D-Dimer Heparin Anti-Xa Level Creatinine 0.5 L Glucose Total Protein Albumin
[2021-09-26] MEDS: APIXABAN 5 MG TAB PO SCH (22:17)
[2021-09-27 06:23] LABS: Basophils # (Auto) 0.1 K/mm3 (0.0-0.1); Eosinophils # (Auto) 0.3 K/mm3 (0.0-0.4); Eosinophils % (Auto) 6.3 % (0.0-4.3); Hematocrit 36.7 % (35.5-45.6); Hemoglobin 12.2 gm/dl (11.8-15.2); Lymphocytes # (Auto) 1.6 K/mm3 (1.2-5.4); Lymphocytes % (Auto) 32.5 % (13.4-35.0); Mean Corpuscular HGB Conc 33 % (32-34); Mean Corpuscular Volume 89 fl (84-94); Monocytes # (Auto) 0.5 K/mm3 (0.0-0.8); Platelet Count 406 K/mm3 (140-440); Red Cell Distribution Width 12.8 % (13.2-15.2)
[2021-09-27 06:38] LABS: Blood Urea Nitrogen 12 mg/dL (9-20); Calcium 8.8 mg/dL (8.4-10.2); Hemolysis Index 2
[2021-09-27 06:40] LABS: BUN/Creatinine Ratio 20
--- NOTE | 2021-09-27 08:42 | Progress Note ---
Assessment and Plan Okay to discharge patient home from a vascular point of view. Patient will need to follow-up in 2 weeks. Discussed with patient the need to remain on oral anticoagulation for at least 6 months. Subjective Date of service: 09/27/21 Principal diagnosis: Shortness of breath, PE Interval history: Patient with right lower lobe segmental pulmonary embolism who on initial CT was reported to have pulmonary hemorrhage. Patient has tolerated IV anticoagulation as well as initiation of oral anticoagulation overnight. No hemoptysis. Patient reports that his shortness of breath is improved. Objective - Constitutional Vitals: Vital Signs - 12hr 09/26/21 09/26/21 09/27/21 22:00 22:16 00:35 Temperature 98.4 F 98.3 F Pulse Rate 74 73 Respiratory 20 18 Rate Blood Pressure 129/83 127/83 O2 Sat by Pulse 98 97 97 Oximetry 09/27/21 09/27/21 05:14 07:54 Temperature 97.8 F Pulse Rate Respiratory 18 Rate Blood Pressure 124/80 O2 Sat by Pulse 98 Oximetry General appearance: Present: no acute distress - EENT Eyes: EOM intact ENT: hearing intact - Neck Neck: supple, normal ROM - Respiratory Respiratory effort: normal - Gastrointestinal General gastrointestinal: Present: deferred Rectal Exam: deferred - Genitourinary Male genitourinary: deferred - Psychiatric Psychiatric: appropriate mood/affect, cooperative - Labs CBC & Chem 7: 09/27/21 05:38 09/27/21 05:38 Labs: Abnormal lab results 09/26/21 09/26/21 09/26/21 Range/Units 12:10 12:10 12:10 RDW 12.7 L (13.2-15.2) % [place] % (Auto) (0.0-7.3) % Eos % (Auto) (0.0-4.3) % APTT 56.3 H (24.2-36.6) Sec. Heparin Anti-Xa Level (0.3-0.7) U.I./ml Creatinine 0.5 L (0.8-1.3) mg/dL 09/27/21 09/27/21 09/27/21 Range/Units 05:38 05:38 05:38 RDW 12.8 L (13.2-15.2) % [place] % (Auto) 9.0 H (0.0-7.3) % Eos % (Auto) 6.3 H (0.0-4.3) % APTT (24.2-36.6) Sec. Heparin Anti-Xa Level 0.90 H (0.3-0.7) U.I./ml Creatinine 0.6 L (0.8-1.3) mg/dL Medications & Allergies - Medications Allergies/Adverse Reactions: Allergies No Known Allergies Allergy (Verified 09/25/21 13:06) Home Medications: Home Medications Medication Instructions Recorded Confirmed Last Taken Type Aspirin EC [Halfprin EC] 81 mg PO QDAY 09/25/21 09/25/21 Unknown History Active Medications: Generic Name Dose Route Start Last Admin Trade Name Freq PRN Reason Stop Dose Admin Acetaminophen 650 mg 09/24/21 17:32 Acetaminophen 325 Mg Tab PO Q6H PRN Pain MILD(1-3)/Fever >100.5/MANZO Albuterol 2.5 mg 09/24/21 17:32 Albuterol 2.5 Mg/3 Ml Nebu IH Q3HRT PRN Shortness Of Breath Apixaban 10 mg 09/26/21 22:00 09/26/21 22:17 Apixaban 5 Mg Tab PO 10/03/21 10:01 10 mg Q12HR ASUNCION Administration Protocol Apixaban 5 mg 10/03/21 22:00 Apixaban 5 Mg Tab PO Q12HR ASUNCION Protocol Folic Acid 1 mg 09/25/21 10:00 09/26/21 09:25 Folic Acid 1 Mg Tab PO 1 mg QDAY ASUNCION Administration Hydromorphone HCl 0.5 mg 09/24/21 17:32 Hydromorphone 0.5 Mg/0.5 Ml Inj IV Q23H PRN Pain , Severe (7-10) Lorazepam 2 mg 09/24/21 17:56 Lorazepam 2 Mg/Ml Vial IV Q1HR PRN CIWA-Ar 8-15 Lorazepam 4 mg 09/24/21 17:56 Lorazepam 2 Mg/Ml Vial IV Q15MIN PRN CIWA-Ar >25 Lorazepam 4 mg 09/24/21 17:56 Lorazepam 2 Mg/Ml Vial IV Q1HR PRN CIWA-Ar 16-25 Oxycodone/Acetaminophen 1 tab 09/24/21 17:32 Oxycodone /Acetaminophen 5-325mg Tab PO Q16H PRN Pain, Moderate (4-6) Sodium Chloride 10 ml 09/24/21 22:00 09/26/21 22:17 Sodium Chloride 0.9% 10 Ml Flush Syringe IV 10 ml BID ASUNCION Administration Sodium Chloride 10 ml 09/24/21 17:32 Sodium Chloride 0.9% 10 Ml Flush Syringe IV PRN PRN LINE FLUSH HEART Score - HEART Score Troponin: Troponin T < 0.010 ng/mL (0.00-0.029) 09/24/21 13:35
[2021-09-27] MEDS: APIXABAN 5 MG TAB PO SCH (09:19)
[2021-09-27] MEDS: FOLIC ACID 1 MG TAB PO SCH (09:19)
--- NOTE | 2021-09-27 09:29 | Discharge Summary ---
Providers - Providers Date of Admission: 09/24/21 17:32 Date of discharge: 09/27/21 Attending physician: AUSTIN FERNANDEZ 09/24/21 14:25 Consult to Physician [CONS] Stat Comment: Consulting Provider: MARGIE HERNANDEZ Physician Instructions: Reason For Exam: Pulmonary hemorrhage 09/25/21 08:40 Consult to Physician [CONS] Routine Comment: Consulting Provider: UBALDO PROCTOR Physician Instructions: Reason For Exam: PE Primary care physician: [facility] Hospitalization Reason for admission: PE Condition: Stable Hospital course: 46-year-old male with history of VTE in the past (7 years ago) who presented through the emergency department with several day history of shortness of breath. The patient was admitted with diagnosis of right lower lobe pulmonary emboli. Acute pulmonary embolus Right lower extremity DVT Acute hypoxic respiratory failure Alcohol dependence Hospital course: 09/25/2021. I discussed the case with pulmonary who is in agreement the patient will be started on IV heparin and then transition to oral anticoagulation. Follow-up echocardiogram to rule out right heart strain 09/26/2021. Echocardiogram does not show right heart strain and only mild diastolic dysfunction. We will transition from IV heparin to Eliquis. Anticipate discharge in a.m. 09/27/2021. Vascular surgery agrees with discharge home. Patient will be discharged home with Eliquis. Dedicated discharge time 35 minutes Disposition: 30 STILL A PATIENT Final Discharge Diagnosis (Prints w/discharge instructions): Acute pulmonary embolus. Right lower extremity DVT. Acute hypoxic respiratory failure. Alcohol dependence Core Measure Documentation - Palliative Care Palliative Care/ Comfort Measures: Not Applicable - Core Measures Any of the following diagnoses?: DVT/PE - VTE Discharge Requirements Deep Vein Thrombosis/Pulmonary Embolism Present on Admission: Yes Has pt received <5 days of overlap therapy or INR<2.0: Yes Anticoagulant overlap therapy prescribed at discharge: Yes Exam - Constitutional Vitals: Temp Pulse Resp BP Pulse Ox 97.8 F 73 18 124/80 98 09/27/21 05:14 09/27/21 00:35 09/27/21 05:14 09/27/21 05:14 09/27/21 07:54 General appearance: Present: no acute distress, well-nourished - EENT Eyes: Present: PERRL ENT: hearing intact, clear oral mucosa - Neck Neck: Present: supple, normal ROM - Respiratory Respiratory effort: normal Respiratory: bilateral: CTA - Cardiovascular Heart Sounds: Present: S1 & S2. Absent: rub, click - Extremities Extremities: pulses symmetrical, No edema Peripheral Pulses: within normal limits - Abdominal General gastrointestinal: Present: soft, non-tender, non-distended, normal bowel sounds Male genitourinary: Present: normal - Integumentary Integumentary: Present: clear, warm, dry - Musculoskeletal Musculoskeletal: gait normal, strength equal bilaterally - Psychiatric Psychiatric: appropriate mood/affect, intact judgment & insight - Neurologic Neurologic: CNII-XII intact, moves all extremities Plan Activity: advance as tolerated Weight Bearing Status: Weight Bear as Tolerated Diet: regular Follow up with: PRIMARY CARE, [Primary Care Provider] - 3-5 Days MOSHE SAENZ MD [Staff Physician] - 7 Days MARGIE HERNANDEZ MD [Staff Physician] - 7 Days Prescriptions: Apixaban [Eliquis] 10 mg PO Q12HR 6 Days #12 tablet Apixaban [Eliquis] 5 mg PO Q12HR #60 tablet
--- NOTE | 2021-09-27 09:58 | Progress Note ---
Assessment and Plan 46 y/o male with VTE in the setting of recent long trip 09/27/21: Being discharged today. No objection from a pulmonary standpoint. Patient will follow up with Vascular. Call if questions. 09/26/21: Continue heparin. Will follow. 1. I am not clinically concerned about pulmonary hemorrhage. I feel that the benefits of anticoagulation outweigh the risk. Suggest starting heparin and monitoring patient at least 24-36 hours on this. If he happens to have hemoptysis, even that does not indicate pulmonary hemorrhage as this is common with PE. However if massive hemoptysis occurs (600cc or more in a 24 hour period) this would warrant bronchoscopy to isolate bleed and where it is coming from. I have spoken with [facility]. Will continue to follow. Subjective Date of service: 09/27/21 Principal diagnosis: Shortness of breath, PE Interval history: Overall improvement in pulm status. now on oral anticoagulation. Objective Vital Signs - 12hr 09/26/21 09/26/21 09/27/21 22:00 22:16 00:35 Temperature 98.4 F 98.3 F Pulse Rate 74 73 Respiratory 20 18 Rate Blood Pressure 129/83 127/83 O2 Sat by Pulse 98 97 97 Oximetry 09/27/21 09/27/21 05:14 07:54 Temperature 97.8 F Pulse Rate Respiratory 18 Rate Blood Pressure 124/80 O2 Sat by Pulse 98 Oximetry Constitutional: no acute distress, alert Eyes: non-icteric ENT: oropharynx moist Neck: supple Effort: normal Ascultation: Bilateral: clear Percussion: Bilateral: not dull Tactile fremitus: Bilateral: normal Cardiovascular: regular rate and rhythm Gastrointestinal: normoactive bowel sounds, soft Integumentary: normal Extremities: no cyanosis, no edema Neurologic: normal mental status, non-focal exam CBC and BMP: 09/27/21 05:38 09/27/21 05:38 ABG, PT/INR, D-dimer: PT/INR, D-dimer PT 14.6 Sec. (12.2-14.9) 09/26/21 12:10 INR 1.00 (0.87-1.13) 09/26/21 12:10 D-Dimer 1255.97 ng/mlDDU (0-234) H 09/24/21 07:50 Abnormal lab findings: Abnormal Labs 09/24/21 09/24/21 09/24/21 07:50 07:50 07:50 RDW 12.8 L Johnston % (Auto) Eos % (Auto) Johnston # (Auto) PT INR APTT D-Dimer 1255.97 H Heparin Anti-Xa Level Creatinine 0.7 L Glucose 105 H Total Protein 8.6 H Albumin 3.8 L 09/24/21 09/25/21 09/25/21 13:35 06:17 06:17 RDW 12.8 L Johnston % (Auto) 10.3 H Eos % (Auto) Johnston # (Auto) 0.9 H PT 16.7 H INR 1.18 H APTT D-Dimer Heparin Anti-Xa Level Creatinine 0.6 L Glucose 141 H Total Protein Albumin 09/25/21 09/26/21 09/26/21 20:29 12:10 12:10 RDW 12.7 L Johnston % (Auto) Eos % (Auto) Johnston # (Auto) PT INR APTT 56.3 H D-Dimer Heparin Anti-Xa Level < 0.10 L Creatinine Glucose Total Protein Albumin 09/26/21 09/27/21 09/27/21 12:10 05:38 05:38 RDW 12.8 L Johnston % (Auto) 9.0 H Eos % (Auto) 6.3 H Johnston # (Auto) PT INR APTT D-Dimer Heparin Anti-Xa Level 0.90 H Creatinine 0.5 L Glucose Total Protein Albumin 09/27/21 05:38 RDW Johnston % (Auto) Eos % (Auto) Johnston # (Auto) PT INR APTT D-Dimer Heparin Anti-Xa Level Creatinine 0.6 L Glucose Total Protein Albumin
[2021-09-27 11:26] VITALS: BP 129/86
--- NOTE | 2021-09-27 18:04 | Electrocardiograph Report ---
[facility] Test Date: 2021-09-24 Test Time: 12:57:57 Pat Name: AJAY MUÑOZ Department: Room: A482 Gender: M [employer] Level [employer] Executive: CAS : 1975 Requested By: LILIANA MATA Order Number: [id number] Reading MD: Melania Barba Measurements Intervals [place] Rate: 78 P: 78 IN: 127 QRS: 77 QRSD: 100 T: 57 QT: 384 QTc: 437 Interpretive Statements Sinus rhythm Right atrial enlargement Probable left ventricular hypertrophy No previous ECG available for comparison Electronically Signed On 09-27-2021 18:04:19 EDT by Melania Barba
--- NOTE | 2021-09-27 18:09 | Electrocardiograph Report ---
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
[2021-10-03] MEDS ORDERED: APIXABAN 5 MG TAB PO SCH (22:00)
== END 2021-09-27 15:30 | disposition home or self-care (01) | DRG 175 ==
LOC: ED 05:57 → 4A 17:32
PROVIDERS: ADMIT Internal Medicine; ATTEND Hospitalist
DX: I26.99 Other pulmonary embolism without acute cor pulmonale (principal); J96.01 Acute respiratory failure with hypoxia; R04.89 Hemorrhage from other sites in respiratory passages; I82.432 Acute embolism and thrombosis of left popliteal vein; I82.4Z2 Acute embolism and thrombosis of unspecified deep veins of left distal lower extremity; Z20.822 Contact with and (suspected) exposure to COVID-19; E78.5 Hyperlipidemia, unspecified; F10.20 Alcohol dependence, uncomplicated; Y90.9 Presence of alcohol in blood, level not specified; Z91.19 Patient's noncompliance with other medical treatment and regimen; Z86.73 Personal history of transient ischemic attack (TIA), and cerebral infarction without residual deficits; Z82.49 Family history of ischemic heart disease and other diseases of the circulatory system
CPT/HCPCS: 36415; 71046; 71275; 80048; 80053; 80061; 82565; 83880; 84484; 85014; 85018; 85025; 85027; 85049; 85379; 85520; 85610; 85730; 93005; 93306; 93970; 94640; G0378; J3490; C8929; J1644; Q9967; U0003